=== PATIENT | male | born 1970 | race Caucasian/White ===

== ENCOUNTER 2019-08-17 01:11 | Emergency (ER) | payer SELFPAY ==
[~2019-08-17] VITALS: Ht 182.9 cm; Wt 71.4 kg
[~2019-08-17 01:11] MED LIST: AMOXICILLIN500 MG PO; AMOXICILLIN875 MG OR; BENTYL10 MG PO; FLEXERIL10 MG PO; IMITREX25 MG PO; INTUNIV2 MG PO; LIDOCAINE VISC20 ML MT; LORTAB 10 PO; LORTAB 1010 MG PO; LORTAB5 PO; NAPROSYN500 MG PO; NO; PERCOCET 5/325M1 TAB PO; PROZAC20 MG PO; TRAZODONE50 MG PO; TRILEPTAL150 M1 PO; TYLENOL & COD12.5 ML PO; ULTRAM50 M1 PO; ULTRAM50 MG OR; ULTRAM50 MG PO; VEETIDS250 MG OR
[2019-08-17] MEDS ORDERED: TESSALON PERLE100 MG PO (02:50)
[2019-08-17] MEDS ORDERED: ZITHROMAX250 MG PO (02:50)
[2019-08-17 03:09] VITALS: BP 129/85
== END 2019-08-17 03:11 | disposition home or self-care (01) | DRG 203 ==
LOC: ED 01:11
DX: J40 Bronchitis, not specified as acute or chronic (principal); J02.9 Acute pharyngitis, unspecified